=== PATIENT | female | born 1980 | race Caucasian/White ===

== ENCOUNTER 2020-10-16 05:13 | Inpatient (IN) | payer OTHER ==
[~2020-10-16] VITALS: Ht 165.1 cm; Wt 81.8 kg
[2020-10-16] MEDS ORDERED: OXYTOCIN 30U/ 0.9% NaCL 500ML 500 ML ONE ×2 (05:22→10:44)
[2020-10-16] MEDS ORDERED: LIDOCAINE 1%, 20ML ONE (05:22)
[2020-10-16] MEDS ORDERED: MISOPROSTOL 200 MCG TABLET ONE (05:22)
[2020-10-16] MEDS ORDERED: NEWBORN KIT ONE (05:22)
[2020-10-16] MEDS ORDERED: OXYTOCIN 30U/ 0.9% NaCL 500ML 500 ML IV PRN (05:30)
[2020-10-16] MEDS ORDERED: D5%-LACTATED RINGERS 1,000 ML IV SCH (05:30)
[2020-10-16] MEDS ORDERED: FENTANYL PF 100 MCG/2ML IVPush PRN (05:30)
[2020-10-16] MEDS ORDERED: TERBUTALINE 1 MG/ML, 1ML SQ PRN (05:30)
[2020-10-16] MEDS ORDERED: TERBUTALINE 1 MG/ML, 1ML IVPush PRN (05:30)
[2020-10-16] MEDS ORDERED: ALUMINUM/MAG/SIMETHICONE 30 ML UDC PO PRN (05:30)
[2020-10-16] MEDS ORDERED: ONDANSETRON 2MG/ML, 2ML IVPush PRN ×2 (05:30→13:00)
[2020-10-16] MEDS ORDERED: FENTANYL PF 100 MCG/2ML IV PRN (05:30)
[2020-10-16] MEDS ORDERED: OXYTOCIN 30U/ 0.9% NaCL 500ML 500 ML IV ONE (05:30)
[2020-10-16] MEDS: LACTATED RINGERS 1,000 ML IV SCH ×2 (06:00→11:39)
[2020-10-16 06:26] LABS: BASOPHILS % (AUTO) 0 % (0-1); EOSINOPHILS % (AUTO) 0 % (1-7); LYMPHOCYTES % (AUTO) 14 % (22-44); MEAN CORPUSCULAR HEMOGLOBIN 26.8 pg (27.0-34.8); MEAN PLATELET VOLUME 7.6 fL (7.4-10.4); MONOCYTES % (AUTO) 7 % (2-9); NEUTROPHILS % (AUTO) 78 % (42-75); PLATELET COUNT 363 x10^3/uL (130-400); RED BLOOD COUNT 3.92 x10^6/uL (3.82-5.3); RED CELL DISTRIBUTION WIDTH 15.6 % (9.6-15.2)
[2020-10-16 06:35] LABS: MD NO
[2020-10-16] MEDS ORDERED: PREN1TAB60 PO (07:00)
[2020-10-16] MEDS ORDERED: CA C1TAB35 PO (07:01)
[2020-10-16] MEDS ORDERED: FENTANYL PF 100 MCG/2ML ONE (10:44)
[2020-10-16] MEDS ORDERED: ONDANSETRON 2MG/ML, 2ML ONE (10:44)
[2020-10-16] MEDS ORDERED: FENTANYL/BUPIV./NS/PF 250 ML EPIDCONT ONE (12:12)
[2020-10-16] MEDS ORDERED: BUPIVACAINE 0.25% ONE (12:12)
[2020-10-16] MEDS ORDERED: EPHEDRINE 50 MG/ML, 1ML ONE (12:49)
[2020-10-16] MEDS ORDERED: EPHEDRINE 50 MG/ML, 1ML IVPush PRN (13:00)
[2020-10-16] MEDS ORDERED: NALOXONE 0.4 MG/ML, 1ML IVPush PRN (13:00)
[2020-10-16] MEDS ORDERED: DIPHENHYDRAMINE 50 MG/ML, 1ML IVPush PRN (13:00)
[2020-10-16] MEDS ORDERED: FENTANYL/BUPIV./NS/PF 250 ML EPIDCONT SCH (13:00)
[2020-10-16] MEDS ORDERED: LACTATED RINGERS 1,000 ML IVBOLUS PRN (13:00)
[2020-10-16] MEDS ORDERED: LACTATED RINGERS 1,000 ML IV SCH (13:00)
[2020-10-16] MEDS ORDERED: METHYLERGONOVINE 0.2 MG/ML IM PRN (17:00)
[2020-10-16] MEDS ORDERED: OXYTOCIN 30U/ 0.9% NaCL 500ML 500 ML IV SCH (17:00)
[2020-10-16] MEDS ORDERED: ACETAMINOPHEN 325 MG TABLET PO PRN ×3 (17:00→18:30)
[2020-10-16] MEDS ORDERED: CARBOPROST TROMETHAMINE 250 MCG/ML, 1ML IM PRN (17:00)
[2020-10-16] MEDS ORDERED: DIPH,PERTUSS(ACELL),TET VAC/PF NC IM-VACC PRN (17:00)
[2020-10-16] MEDS ORDERED: SIMETHICONE 80 MG CHEW TAB PO PRN ×2 (17:00→18:30)
[2020-10-16] MEDS ORDERED: DOCUSATE 100 MG CAPSULE PO PRN (17:00)
[2020-10-16] MEDS ORDERED: IBUPROFEN 600 MG TABLET PO PRN (17:00)
[2020-10-16] MEDS ORDERED: RHOGAM FROM BLOOD BANK 1 NOTE EA IM/IV ONE (17:00)
[2020-10-16] MEDS ORDERED: MISOPROSTOL 200 MCG TABLET PR PRN ×2 (17:00→18:30)
[2020-10-16] MEDS ORDERED: MEASLES,MUMPS&RUBELLA VACC/PF 0.5 ML SQ-VACC PRN ×2 (17:00→18:30)
[2020-10-16] MEDS ORDERED: OXYcodone/APAP 5/325MG TABLET PO PRN ×4 (17:00→18:30)
[2020-10-16] MEDS ORDERED: IBUPROFEN 600 MG TABLET ONE (17:25)
[2020-10-16 18:20] VITALS: BP 98/62
[2020-10-16] MEDS: OXYTOCIN 30U/ 0.9% NaCL 500ML 500 ML IV SCH (18:30)
[2020-10-16 20:37] VITALS: BP 92/57
[2020-10-16] MEDS: DOCUSATE 100 MG CAPSULE PO PRN (23:52)
[2020-10-16] MEDS: IBUPROFEN 600 MG TABLET PO PRN (23:53)
[2020-10-16 23:55] VITALS: BP 90/57
[2020-10-17 01:03] LABS: BASOPHILS % (AUTO) 0 % (0-1); EOSINOPHILS % (AUTO) 0 % (1-7); LYMPHOCYTES % (AUTO) 7 % (22-44); MEAN CORPUSCULAR HEMOGLOBIN 26.7 pg (27.0-34.8); MEAN CORPUSCULAR HGB CONC 32.3 g/dL (32.4-35.8); MEAN PLATELET VOLUME 7.6 fL (7.4-10.4); MONOCYTES % (AUTO) 7 % (2-9); NEUTROPHILS % (AUTO) 86 % (42-75); PLATELET COUNT 284 x10^3/uL (130-400); RED BLOOD COUNT 3.17 x10^6/uL (3.82-5.3); RED CELL DISTRIBUTION WIDTH 15.9 % (9.6-15.2)
[2020-10-17 01:50] LABS: MD SCAN
[2020-10-17 04:13] VITALS: BP 92/58
[2020-10-17] MEDS: OXYTOCIN 30U/ 0.9% NaCL 500ML 500 ML IV SCH (04:30)
[2020-10-17] MEDS ORDERED: PRENATAL VIT/IRON/FA 1 EACH TABLET PO SCH (09:00)
[2020-10-17] MEDS: DOCUSATE 100 MG CAPSULE PO PRN ×2 (09:14→19:26)
[2020-10-17] MEDS: PRENATAL VIT/IRON/FA 1 EACH TABLET PO SCH (09:14)
[2020-10-17] MEDS: IBUPROFEN 600 MG TABLET PO PRN ×2 (09:14→17:49)
[2020-10-17 09:15] VITALS: BP 103/66
[2020-10-17 12:11] VITALS: BP 94/58
[2020-10-17 19:45] VITALS: BP 103/68
[2020-10-18 07:30] VITALS: BP 96/57
[2020-10-18] MEDS: DOCUSATE 100 MG CAPSULE PO PRN (07:43)
[2020-10-18] MEDS: IBUPROFEN 600 MG TABLET PO PRN (07:43)
[2020-10-18] MEDS: PRENATAL VIT/IRON/FA 1 EACH TABLET PO SCH (07:43)
[2020-10-18] MEDS ORDERED: IBUP-1223 PO (07:58)
== END 2020-10-18 09:25 | disposition home or self-care (01) | DRG 807 ==
LOC: LDIP 05:13 → 2NW 17:57
PROVIDERS: ADMIT Obstetrics & Gynecology Maternal & Fetal Medicine; ATTEND Obstetrics & Gynecology Maternal & Fetal Medicine
PROC: 10E0XZZ Delivery of Products of Conception, External Approach (ICD-10-PCS; principal; 2020-10-16)
PROC: 10907ZC Drainage of Amniotic Fluid, Therapeutic from Products of Conception, Via Natural or Artificial Opening (ICD-10-PCS; 2020-10-16)
PROC: 0HQ9XZZ Repair Perineum Skin, External Approach (ICD-10-PCS; 2020-10-16)
PROC: 0UQMXZZ Repair Vulva, External Approach (ICD-10-PCS; 2020-10-16)
PROC: 3E0R3BZ Introduction of Anesthetic Agent into Spinal Canal, Percutaneous Approach (ICD-10-PCS; 2020-10-16)
PROC: 00HU33Z Insertion of Infusion Device into Spinal Canal, Percutaneous Approach (ICD-10-PCS; 2020-10-16)
DX: O76 Abnormality in fetal heart rate and rhythm complicating labor and delivery (principal); Z37.0 Single live birth; O99.02 Anemia complicating childbirth; D50.9 Iron deficiency anemia, unspecified; Z20.822 Contact with and (suspected) exposure to COVID-19; Z3A.39 39 weeks gestation of pregnancy; Z90.49 Acquired absence of other specified parts of digestive tract; O70.0 First degree perineal laceration during delivery
CPT/HCPCS: 36415; 85025; 86592; 86850; 86900; 87635; G0378; J2405; J3010; J2590; J7120